=== PATIENT | male | born 1975 | race Caucasian/White ===

== ENCOUNTER 2021-11-21 11:52 | Emergency (ER) | payer OTHER, SELFPAY ==
--- NOTE | ~2021-11-21 | XR_ITS ---
This report was recreated on 12/06/2021. Original report was signed by Oz Montgomery M.D. on 11/21/2021 12:28 CDT XR chest 2V DATE: 11/21/2021 12:24 INDICATION: Post: Cough, congestion for 2 weeks TECHNIQUE: 2 views COMPARISON: None FINDINGS: Normal heart size. No hilar or mediastinal enlargement. No pulmonary infiltrate or consolidation, pleural effusion or pulmonary vascular congestion or pneumothorax. IMPRESSION: No active cardiopulmonary disease Reviewed, dictated and finalized at location A. Dictated By: Oz Montgomery MD 11/21/21 1227 Signed By: <Electronically signed by Oz Montgomery MD in [place]> 11/21/21 1228 [facility]
--- NOTE | ~2021-11-21 | XR_ITS ---
XR chest 2V DATE: 11/21/2021 12:24 INDICATION: Post: Cough, congestion for 2 weeks TECHNIQUE: 2 views COMPARISON: None FINDINGS: Normal heart size. No hilar or mediastinal enlargement. No pulmonary infiltrate or consolid ation, pleural effusion or pulmonary vascular congestion or pneumothorax. IMPRESSION: No active cardiopulmonary disease Reviewed, dictated and finalized at location A.
--- NOTE | 2021-11-21 12:02 | ED.URI ---
HPI - URI/Sore Throat General Chief Complaint: Upper Respiratory Infection Stated Complaint: covid symptoms Time Seen by Provider: 11/21/21 12:02 Source: patient Mode of arrival: ambulatory Limitations: no limitations History of Present Illness HPI Narrative: 46-year-old male presents with complaint of continued sinus congestion, a lot of drainage, intermittent dizziness, cough, chest congestion for the past 2 weeks. Had a positive home COVID test end of October. Denies chest pain and shortness of breath at this time. Is taking Zyrtec and Mucinex DM. Has appointment with PCP next week. States he has been fatigued, sleeping approximately 20 hours some days. Has missed several days of work. Was told that he needs a work note to return. All systems reviewed and negative except as noted above. Related Data Home Medications Medication Instructions Recorded Confirmed allopurinol 300 mg tablet 300 mg PO DAILY 11/21/21 11/21/21 Allergies Allergy/AdvReac Type Severity Reaction Status Date / Time No Known Allergies Allergy Verified 11/21/21 12:12 Review of Systems Review of Systems: CONSTITUTIONAL: Denies fever, chills, or sweats. EYES: Denies visual changes, redness, or discharge. ENT: Reports rhinorrhea, congestion. Denies sore throat, or otalgia. CARDIOVASCULAR: Denies chest pain, palpitations, or edema. RESPIRATORY: Reports cough. Denies dyspnea. GASTROINTESTINAL: Denies abdominal pain, nausea, vomiting, or diarrhea. GENITOURINARY: Denies dysuria or hematuria. SKIN: Denies rash or itching. MUSCULOSKELETAL: Denies back pain, joint pain, or myalgia. NEUROLOGIC: Denies headache, numbness, or weakness. Reports intermittent dizziness when ambulatory. PSYCHIATRIC: Denies anxiety or depression. All other systems reviewed are negative, except as documented in HPI. [facility] Family History Family History (Updated 03/27/16 @ 08:11 by DOCTOR UNKNOWN) Father Acute myocardial infarction Cerebrovascular accident Mother Family history of malignant neoplasm of breast in first degree relative Social History Social History Smoking status: Never smoker Alcohol intake: current Comments At time of signature, agree with nursing past medical, surgical, social and family history. There is no relevant family history pertinent to the presenting complaint. Exam Narrative: GENERAL: This is a well-nourished, well-developed patient, in no apparent distress. HEAD: normocephalic, atraumatic. EYES: PERRL. Sclera clear/white. Vision is grossly intact. EARS: External ears normal, auditory canals clear and without drainage, fluid to bilateral TMs, dull light reflex. NOSE: External nose normal with no nasal drainage, moderate sinus congestion, maxillary sinus tenderness bilaterally. THROAT: Mucous membranes moist, clear postnasal drainage noted. No erythema to posterior pharynx. NECK: Neck supple, non-tender without lymphadenopathy, masses or thyromegaly. CARDIOVASCULAR: Regular rate and rhythm without murmurs, gallops, or rubs. RESPIRATORY: Clear to auscultation. Breath sounds equal bilaterally. No wheezes, rales, or rhonchi. SKIN: warm, Dry, intact with no suspicious lesions or rash, good texture and turgor. NEURO: awake, alert, and oriented to person, place and time. There were no obvious focal neurologic abnormalities. EXTREMITIES: No joint tenderness, effusion, or edema noted. Course Course Level of Care: Express Care Visit Vital Signs Vital signs: Vital Signs Temperature 37.0 C 11/21/21 12:06 Pulse Rate 79 11/21/21 12:06 Respiratory Rate 12 11/21/21 12:06 Blood Pressure 112/82 11/21/21 12:06 Pulse Oximetry 99 11/21/21 12:06 Oxygen Delivery Room Air 11/21/21 12:06 Temperature 37.0 C 11/21/21 12:06 Pulse Rate 79 11/21/21 12:06 Respiratory Rate 12 11/21/21 12:06 Blood Pressure 112/82 11/21/21 12:06 Pulse Oximetry 99 11/21/21 12:06 Oxygen Delivery Room Air 11/21/21 12:13
[2021-11-21 12:06] VITALS: BP 112/82; PULSE 79; RESP 12; TEMP 37; O2SAT 99
== END 2021-11-21 12:54 | disposition home or self-care (01) ==
PROVIDERS: Emergency Provider Nurse Practitioner Family
DX: J01.90 Acute sinusitis, unspecified (principal); J40 Bronchitis, not specified as acute or chronic; G40.909 Epilepsy, unspecified, not intractable, without status epilepticus
CPT/HCPCS: 71046; 99213; G0463

== ENCOUNTER 2024-01-27 07:49 | Outpatient (CLI) | payer OTHER, SELFPAY ==
--- NOTE | ~2024-01-27 | US_ITS ---
EXAMINATION: US right upper quadrant DATE: 01/27/2024 08:22 INDICATION: Elevated liver enzymes TECHNIQUE: Multiple grayscale and Doppler ultrasound images of the abdomen were obtained. COMPARISON: None FINDINGS: The pancreatic head and body are normal in appearance. The pancreatic tail is not visualized. Visual ized proximal to mid aorta and inferior vena cava are normal. Liver has normal contour, with a smooth surface. There is increased parenchymal echogenicity and coarsened echotexture consistent with diffu se hepatic steatosis. No liver lesion identified. No intrahepatic biliary duct dilation suspected. P ortal venous flow was seen in the hepatopetal, normal direction and has normal Doppler waveform. The gallbladder is normal in appearance. There is no cholelithiasis. The common bile duct measures 3 mm, which is normal. Sonographic Berger sign was reported as negative by the computer systems support specialist. Right kidney m easures 10.6 cm with normal contour and echogenicity and no hydronephrosis. IMPRESSION: 1. Diffuse hepatic steatosis. Reviewed, dictated and finalized at location B.
== END 2024-01-27 07:50 | disposition home or self-care (01) ==
LOC: MICIMG 07:50
PROVIDERS: PCP Student in an Organized Health Care Education/Training Program; Visit Provider Student in an Organized Health Care Education/Training Program
DX: R74.8 Abnormal levels of other serum enzymes (principal); K76.0 Fatty (change of) liver, not elsewhere classified
CPT/HCPCS: 76705